=== PATIENT | female | born 1995 ===

== ENCOUNTER 2018-08-20 08:03 | Emergency (ER) | payer SELFPAY ==
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
--- NOTE | 2018-08-20 08:24 | EKG ---
FACILITY: [facility] - [place] PATIENT NAME: KEYANNA PABLO : [id number] MR: [id number] V: [id number] EXAM DATE: ORDERING PHYSICIAN: DAPHNIE RAMEY TECHNOLOGIST: YUSRA Benjamin Reason : FALL Blood Pressure : / mmHG Vent. Rate : 087 BPM Atrial Rate : 087 BPM P-R Int : 130 ms QRS Dur : 070 ms QT Int : 362 ms P-R-T Axes : 045 005 017 degrees QTc Int : 435 ms Sinus rhythm No acute appearing findings No previous ECGs available Confirmed by MAGGY ACOSTA ([id number]) on 08/20/2018 5:39:22 PM Referred By: TANVIR Confirmed By:MAGGY ACOSTA
[2018-08-20 08:30] VITALS: BP 114/74
[2018-08-20] MEDS ORDERED: IOPAMIDOL 76% 75 ML INFUS BTL 75 ML ONE (08:33)
[2018-08-20 08:59] LABS: PLATELET COUNT, AUTOMATED 241 K/uL (150-450)
[2018-08-20 09:05] LABS: INR 0.95
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
--- NOTE | 2018-08-20 10:38 | RADIOLOGY IMAGING REPORT ---
[place] [facility] [place] Pina Coreas : 1995 MR: [id number] V: [id number] EXAM DATE: [id number] ORDERING PHYSICIAN: DAPHNIE RAMEY TECHNOLOGIST: Location: [facility] Patient: Pina Coreas : 1995 Visit/Account:[id number] Date of Sevice: 08/20/2018 CHEST/AB/PELV W/CONTRAST, T-SPINE W CONTRAST, L-SPINE W CONTRAST HISTORY: fall, chest pain, abdominal pain TECHNIQUE: CT chest, abdomen and pelvis with intravenous contrast. One of the following dose optimization techniques was utilized in the performance of this exam: Autom ated exposure control; adjustment of the mA and/or kV according to the patient's size; or use of an i terative reconstruction technique. Specific details can be referenced in the facility's radiology C T exam operational policy. 2-D bone and soft tissue reconstruction performed of the thoracic and lumbar spine. CONTRAST: 75 mL Isovue-370. COMPARISON: None. FINDINGS: CHEST: Heart/vessels: Negative.. Mediastinum: Mild residual thymic tissue. Otherwise negative. Lymph nodes: Negative. Lungs/pleura: Negative. Bones/soft tissues: Negative. 2-D bone and soft tissue reconstruction of the thoracic spine: Negative. ABDOMEN/PELVIS: Hepatobiliary: Negative. Spleen: Negative. Adrenals: Negative. Pancreas: Negative. Kidneys/: Small foci of gas within the bladder lumen. Otherwise negative. GI: Negative. Vessels/spaces/nodes: Negative. Bones/soft tissues: Negative. 2D bone and soft tissue reconstruction of the lumbar spine: Negative. IMPRESSION: 1. No acute findings. 2. Nonspecific small foci of gas within the bladder lumen. Report Dictated By: Abhijeet Trejo MD at 08/20/2018 10:26 AM Report E-Signed By: Abhijeet Trejo MD at 08/20/2018 10:33 AM WSN:[id number]
--- NOTE | 2018-08-20 10:38 | RADIOLOGY IMAGING REPORT ---
FACILITY: [facility] - [place] PATIENT NAME: Pina Coreas : 1995 MR: [id number] V: [id number] EXAM DATE: [id number] ORDERING PHYSICIAN: DAPHNIE RAMEY TECHNOLOGIST: Location: Patient: Pina Coreas : 1995 Visit/Account:[id number] Date of Sevice: 08/20/2018 CHEST/AB/PELV W/CONTRAST, T-SPINE W CONTRAST, L-SPINE W CONTRAST HISTORY: fall, chest pain, abdominal pain TECHNIQUE: CT chest, abdomen and pelvis with intravenous contrast. One of the following dose optimization techniques was utilized in the performance of this exam: Autom ated exposure control; adjustment of the mA and/or kV according to the patient's size; or use of an i terative reconstruction technique. Specific details can be referenced in the facility's radiology C T exam operational policy. 2-D bone and soft tissue reconstruction performed of the thoracic and lumbar spine. CONTRAST: 75 mL Isovue-370. COMPARISON: None. FINDINGS: CHEST: Heart/vessels: Negative.. Mediastinum: Mild residual thymic tissue. Otherwise negative. Lymph nodes: Negative. Lungs/pleura: Negative. Bones/soft tissues: Negative. 2-D bone and soft tissue reconstruction of the thoracic spine: Negative. ABDOMEN/PELVIS: Hepatobiliary: Negative. Spleen: Negative. Adrenals: Negative. Pancreas: Negative. Kidneys/: Small foci of gas within the bladder lumen. Otherwise negative. GI: Negative. Vessels/spaces/nodes: Negative. Bones/soft tissues: Negative. 2D bone and soft tissue reconstruction of the lumbar spine: Negative. IMPRESSION: 1. No acute findings. 2. Nonspecific small foci of gas within the bladder lumen. Report Dictated By: Abhijeet Trejo MD at 08/20/2018 10:26 AM Report E-Signed By: Abhijeet Trejo MD at 08/20/2018 10:33 AM WSN:[id number]
--- NOTE | 2018-08-20 10:38 | RADIOLOGY IMAGING REPORT ---
FACILITY: [facility] - [place] PATIENT NAME: Pina Coreas : 1995 MR: [id number] V: [id number] EXAM DATE: [id number] ORDERING PHYSICIAN: DAPHNIE RAMEY TECHNOLOGIST: Location: [facility] Patient: Pina Coreas : 1995 Visit/Account:[id number] Date of Sevice: 08/20/2018 CHEST/AB/PELV W/CONTRAST, T-SPINE W CONTRAST, L-SPINE W CONTRAST HISTORY: fall, chest pain, abdominal pain TECHNIQUE: CT chest, abdomen and pelvis with intravenous contrast. One of the following dose optimization techniques was utilized in the performance of this exam: Autom ated exposure control; adjustment of the mA and/or kV according to the patient's size; or use of an i terative reconstruction technique. Specific details can be referenced in the facility's radiology C T exam operational policy. 2-D bone and soft tissue reconstruction performed of the thoracic and lumbar spine. CONTRAST: 75 mL Isovue-370. COMPARISON: None. FINDINGS: CHEST: Heart/vessels: Negative.. Mediastinum: Mild residual thymic tissue. Otherwise negative. Lymph nodes: Negative. Lungs/pleura: Negative. Bones/soft tissues: Negative. 2-D bone and soft tissue reconstruction of the thoracic spine: Negative. ABDOMEN/PELVIS: Hepatobiliary: Negative. Spleen: Negative. Adrenals: Negative. Pancreas: Negative. Kidneys/: Small foci of gas within the bladder lumen. Otherwise negative. GI: Negative. Vessels/spaces/nodes: Negative. Bones/soft tissues: Negative. 2D bone and soft tissue reconstruction of the lumbar spine: Negative. IMPRESSION: 1. No acute findings. 2. Nonspecific small foci of gas within the bladder lumen. Report Dictated By: Abhijeet Trejo MD at 08/20/2018 10:26 AM Report E-Signed By: Abhijeet Trejo MD at 08/20/2018 10:33 AM WSN:[id number]
== END 2018-08-20 11:53 | disposition home or self-care (01) ==
LOC: ER 08:04 → SANE 11:53
DX: S16.1XXA Strain of muscle, fascia and tendon at neck level, initial encounter (principal); S06.0X1A Concussion with loss of consciousness of 30 minutes or less, initial encounter; S21.211A Laceration without foreign body of right back wall of thorax without penetration into thoracic cavity, initial encounter; Y04.8XXA Assault by other bodily force, initial encounter; R42 Dizziness and giddiness; M54.2 Cervicalgia; R10.84 Generalized abdominal pain
CPT/HCPCS: 70450; 71260; 72125; 72129; 72132; 74177; 84703; 85025; 85610; 85730; 93005; Q9967; 82040; 82247; 82310; 82374; 82435; 82565; 82947; 84075; 84132; 84155; 84295; 84450; 84460; 84520

== ENCOUNTER → 2018-08-20 | Outpatient (CLI) | payer SELFPAY | LOC: AMB 07:19 | PROVIDERS: ATTEND Nurse Practitioner | DX: R11.2 Nausea with vomiting, unspecified (principal); S09.90XA Unspecified injury of head, initial encounter; Y09 Assault by unspecified means | CPT/HCPCS: A0425; A0429 ==

== ENCOUNTER 2018-12-08 13:38 | Emergency (ER) | payer SELFPAY ==
[2018-12-08] MEDS ORDERED: ACETAMINOPHEN 325 MG TAB PO ONE (14:25)
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
[2018-12-08 16:00] VITALS: BP 114/73
== END 2018-12-08 16:45 | disposition home or self-care (01) ==
LOC: ER 13:42
DX: S00.03XA Contusion of scalp, initial encounter (principal); S09.90XA Unspecified injury of head, initial encounter; Y04.8XXA Assault by other bodily force, initial encounter
CPT/HCPCS: 36415; 70450; 84703; 99284